=== PATIENT | male | born 1980 | race Caucasian/White ===

== ENCOUNTER 2020-06-05 06:27 | Emergency (ER) | payer MEDICAID, OTHER ==
[~2020-06-05] VITALS: Ht 185.4 cm; Wt 99.8 kg
[2020-06-05] MEDS ORDERED: KETOROLAC TROMETH 60MG/2ML VIAL IM ONE (09:15)
[2020-06-05] MEDS ORDERED: METHOCARBAMOL 500 MG TAB PO ONE (09:15)
[2020-06-05 10:59] VITALS: BP 121/76
== END 2020-06-05 11:20 | disposition home or self-care (01) ==
LOC: ER 06:27
DX: M54.16 Radiculopathy, lumbar region (principal)
CPT/HCPCS: 72100; 93971; 96372; 99284; J1885

== ENCOUNTER 2021-12-04 13:01 | Emergency (ER) | payer MEDICAID ==
[~2021-12-04] VITALS: Ht 185.4 cm; Wt 90.7 kg
[2021-12-04 13:49] VITALS: BP 114/75
== END 2021-12-04 17:30 | disposition home or self-care (01) ==
LOC: ER 13:01
DX: S02.2XXA Fracture of nasal bones, initial encounter for closed fracture (principal); S40.012A Contusion of left shoulder, initial encounter; Y04.2XXA Assault by strike against or bumped into by another person, initial encounter; Y93.89 Activity, other specified; Y92.89 Other specified places as the place of occurrence of the external cause; Y99.8 Other external cause status
CPT/HCPCS: 70450; 70486

== ENCOUNTER 2025-06-02 02:37 | Inpatient (IN) | payer MEDICAID, OTHER ==
[~2025-06-02] VITALS: Ht 182.9 cm; Wt 66.5 kg
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
[2025-06-02 04:02] LABS: Hemoglobin 9.7 g/dL (13.5-17.5); Nucleated Red Blood Cells % 0.0 %
[2025-06-02 04:05] LABS: Hematocrit 28.6 % (41.0-53.0); Mean Corpuscular Hemoglobin 28.3 pg (28.0-32.0); Mean Corpuscular Volume 83.2 fL (80.0-100.0)
[2025-06-02 04:06] LABS: Chloride 98 mmol/L (98-107); Potassium 4.1 mmol/L (3.5-5.1)
[2025-06-02 04:07] LABS: Anion Gap 7 (5-15); Carbon Dioxide 30 mmol/L (20-31)
[2025-06-02 04:12] LABS: BUN/Creatinine Ratio 16.7 (10.0-20.0); Blood Urea Nitrogen 9 mg/dL (9-23)
[2025-06-02] MEDS: HYDROcodone-ACET 7.5/325MG TAB PO ONE (04:13)
[2025-06-02] MEDS ORDERED: VANCOMYCIN 1GM/250ML KIT 250 ML IV ONE (04:30)
[2025-06-02 04:34] LABS: Calcium 8.6 mg/dL (8.7-10.4); Glucose 110 mg/dL (74-106); Sodium 135 mmol/L (136-145)
[2025-06-02] MEDS ORDERED: VANCOMYCIN PER PHARMACY 0 MG IV SCH (04:45)
--- NOTE | 2025-06-02 05:03 | DVH ---
Right lower extremity venous duplex Clinical History: RLE edema, pain Comparison: CV VENOUS DOPPLER EXTREM BILAT on DOS: 03/08/25. Findings: Duplex Doppler evaluation of the deep venous systems of right lower extremity from the common femoral veins to the popliteal veins including color Doppler and spectral/pulsed waveform analysis was performed. RIGHT SIDE: The common femoral vein demonstrates appropriate compressibility and waveform variability. There is compressibility/patency of the great saphenous vein at the proximal thigh. The femoral vein demonstrates appropriate compressibility and waveform variability. The deep femoral vein demonstrates appropriate compressibility and waveform variability. The popliteal vein demonstrates appropriate compressibility and waveform variability. Posterior tibial vein is patent on the color Doppler images. There are multiple lymph nodes in the right groin the largest measuring 1.2 x 0.4 x 1.0 cm. Impression: 1. No right femoropopliteal venous thrombosis.
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
[2025-06-02] MEDS: PANTOPRAZOLE 40 MG TAB PO SCH (05:48)
[2025-06-02] MEDS: SODIUM CHLORIDE 0.9% 1,000 ML IV SCH (05:49)
[2025-06-02] MEDS: VANCOMYCIN 1GM/250ML KIT 250 ML IV SCH (06:17)
[2025-06-02] MEDS: IOHEXOL 300 MG/ML 100ML BOTTLE IJ ONE (06:19)
--- NOTE | 2025-06-02 06:49 | DVH ---
CHEST RADIOGRAPH Indication: r/o dvt Technique: Single frontal view of the chest was obtained Comparison: XR CHEST 1 VIEW on DOS: 03/08/25. FINDINGS: Lines and Tubes: None Lungs: There is right lower lung zone consolidation. Pleura: No effusion. No pneumothorax. Cardiomediastinal contours: Unremarkable Bones: No acute osseous abnormality. Orthopedic hardware in the partially imaged left humerus. IMPRESSION: 1. Right lower lung zone consolidation which could represent pneumonia in the appropriate clinical setting. Follow-up to ensure complete resolution recommended.
[2025-06-02 07:05] LABS: Alanine Aminotransferase 31 U/L (7-40); Anion Gap 8 (5-15); BUN/Creatinine Ratio 17.0 (10.0-20.0); Carbon Dioxide 30 mmol/L (20-31); Chloride 99 mmol/L (98-107); Glucose 100 mg/dL (74-106); Potassium 4.2 mmol/L (3.5-5.1); Sodium 137 mmol/L (136-145); Total Protein 6.9 g/dL (5.7-8.2)
[2025-06-02 07:12] LABS: Albumin 3.0 g/dL (3.2-4.8); Alkaline Phosphatase 129 U/L (46-116); Bilirubin, Total < 0.2 mg/dL (0.2-1.0); Blood Urea Nitrogen 9 mg/dL (9-23); Calcium 8.2 mg/dL (8.7-10.4)
--- NOTE | 2025-06-02 07:35 | DVH ---
CLINICAL INFORMATION: 44 years old, Male; Rule out abscess, purulent discharge from stump suture line. TECHNIQUE: Axial CT images of the left lower extremity were obtained from the level of the left iliac crest through the left above knee amputation stump after the administration of 100 mL Omnipaque 300 IV contrast. Coronal and sagittal reformatted images were obtained, reviewed, and stored. All CT scans at this medical facility are performed using dose modulation techniques as appropriate to a performed exam including the following: Automated exposure control was utilized; adjustment of the MA and/or KV according to patient size; and use of iterative reconstruction technique. CTDIvol = 12.41 mGy DLP = 697.26 mGy-cm COMPARISON: CT ANGIOGRAM RUNOFF on DOS: 03/25/25, CT LOWER EXT BILAT W on DOS: 03/08/25 FINDINGS: There is diffuse subcutaneous edema throughout the left lower extremity with skin thickening and areas of subcutaneous enhancement, likely cellulitis in the appropriate clinical setting. There is ill-defined fluid and small locules of gas adjacent to the amputation stump, possible phlegmon. No definite peripherally enhancing abscess demonstrated, although prominent artifact from the intramedullary bonifacio obscures visualization at the level of the ill-defined fluid. There are areas of cortical deformity at the amputation stump of the distal femur. Possibly erosive changes. Osteomyelitis not excluded. Enlarged left inguinal lymph nodes and external iliac lymph nodes, with the largest measuring up to 2.7 x 1.4 cm, possibly reactive given the findings in the left lower extremity. Other etiologies, including malignancy can not be completely excluded. There are postsurgical changes from prior open reduction internal fixation of the left proximal femur with intramedullary bonifacio and [address] There is a locking screw at the proximal femoral diaphysis. There is a screw extending across the left acetabulum and into the left pubic bone. There is a screw extending across the left sacroiliac joint and visualized portions of the sacrum, incompletely included within the [id number] of the exam. Chronic ossicles along the anterior aspect of the left proximal femur near the level of the femoral neck, with the largest measuring up to 5 cm. Prominent exostosis at the mid femoral diaphysis and coursing slightly cephalad and medially. IMPRESSION: 1. Prominent subcutaneous edema, enhancement, and skin thickening in the left lower extremity, likely cellulitis in the appropriate clinical setting. 2. Ill-defined fluid collection near the left femoral amputation stump, possible phlegmon. No definite peripherally enhancing abscess demonstrated, although prominent beam hardening artifact from the intramedullary bonifacio obscures visualization. 3. Areas of cortical cortical deformity at the amputation stump of the distal femur, possible erosive changes. Osteomyelitis not excluded. 4. Enlarged left inguinal lymph nodes and left external iliac lymph nodes, most may be reactive to the process in the left lower extremity. Other etiologies, including malignancy can not be completely excluded in the appropriate clinical setting. Correlate with clinical findings. Similar findings are seen on prior CTA runoff exam. 5. Additional findings as described above.
[2025-06-02 08:30] LABS: Urine Protein, UAD TRACE (Negative)
[2025-06-02] MEDS: CEFEPIME 1GM/50ML 50 ML IV SCH (10:00)
[2025-06-02] MEDS: ZINC SULFATE 220mg CAP or TAB PO SCH (10:07)
[2025-06-02] MEDS: ENOXAPARIN SOD 40 MG/0.4 ML SYRINGE SC SCH (10:07)
[2025-06-02] MEDS: ASCORBIC ACID 500 MG TAB PO SCH (10:07)
[2025-06-02 12:37] LABS: Iron 16.0 ug/dL (65-175); Total Iron Binding Capacity 206.0 ug/dL (250-425)
[2025-06-02 14:10] LABS: COVID19 ANTIGEN SOFIA FIA NEGATIVE (NEGATIVE)
[2025-06-02 15:31] LABS: Opiate Scree,Urine Neg (NEGATIVE)
[2025-06-02 15:32] LABS: Amphetamine Screen, Urine Pos (NEGATIVE); Barbiturate Scree,Urine Neg (NEGATIVE); Benzodiazephine Screen, Urine Neg (NEGATIVE); Cannabinoid Screen, Urine Neg (NEGATIVE); Cocaine Screen, Urine Neg (NEGATIVE); Phencyclidine Screen, Urine Neg (NEGATIVE)
[2025-06-02 15:40] VITALS: O2SAT 98
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
--- NOTE | 2025-06-02 18:18 | DVH ---
Report Report Consult with Physician Open Discussion (F11) Query Retrieve Patient Info : Jazmin KRAMER/: 44YR (1980)Gender: MalePhone: [phone]: NA Order Info Location: [facility] Modality: CT Procedure Desc: CT LOWER EXTREMITY NON JOINT RIGH DOS: 06/02/2025 13:17 wRVU: NA Pending Since: NA Reason: WITHOUT CONTRAST, CT SCAN OF LOWER EXTREMITY, RIGHT, R/O ABC Status: Complete Tag: NA Type/Priority: Inpatient / ROUTINE STAT Stroke: NO Physician Info Ordering: DANIELLE SAHNIering: CHI IZQUIERDO Report Date: 06/02/2025Report Status: Final Search ANY 4M 1Y [address]Y [address] OTH US CR DX CT LOWER EXTREMITY NON JOINT RIGH DOS : 06/02/[address] LT LOWER EXTREMITY W CONTRAS DOS : 06/02/2025 COLT YA CHEST XRAY 1 VIEW DOS : 06/02/2025 CHULA ANDERSON US RT Lower DVT DOS : 06/02/[address] ANGIOGRAM RUNOFF DOS : 03/25/2025 CIH IZQUIERDO XR CHEST 1 VIEW DOS : 03/08/[address] LOWER EXT BILAT W DOS : 03/08/2025 CHULA ANDERSON CV VENOUS DOPPLER EXTREM BILAT DOS : 03/08/2025 ROHITH MORIN XR TIB FIB BILAT DOS : 03/08/2025 CHULA ANDERSON CV VENOUS DOPPLER LOW EXT LT DOS : 02/11/2025 CHULA ANDERSON FAC2C DOS : 12/04/2021 OLIVER LOYD HWOCT DOS : 12/04/2021 GISEL BEAUCHAMP EXAM: CT LOWER EXTREMITY NON JOINT RIGH INDICATION: without contrast, ct scan of lower extremity, right, r/o abc TECHNIQUE: Axial images of right lower extremity have been obtained along with coronal and sagittal reformatted images. All CT scans at this facility use dose modulation, iterative reconstruction, and/or weight based dosing when appropriate to reduce radiation dose to as low as reasonably achievable. COMPARISON: CT LT LOWER EXTREMITY W CONTRAS on DOS: 06/02/25 FINDINGS: BONES: No CT evidence of an acute fracture or aggressive osseous lesion. no abnormal osseous erosion, lucency, sclerosis to suggest osteomyelitis. Plate screw construct laterally applied of the proximal tibia prior healed malunited proximal fibular fracture with callus formation posterior calcaneal tuberosity spurring. MUSCLES: No abnormal attenuation. JOINT SPACES: No joint effusion. TENDONS/LIGAMENTS: Intact. OTHER: Significant surrounding skin thickening, subcutaneous adipose tissue edema. In regards to the clinical question, no CT evidence of drainable fluid collection/ abscess. Correlate for extensive cellulitis and/or bland edema. IMPRESSION: 1. No CT evidence of osteomyelitis. 2. No CT evidence of drainable fluid collection/abscess. 3. Correlate for extensive cellulitis and/or bland edema. IE SKELTON
[2025-06-02] MEDS ORDERED: VANCOMYCIN 1GM/250ML KIT 250 ML IV SCH (20:00)
[2025-06-02 21:17] VITALS: BP 107/63; PULSE 80; RESP 17; TEMP 97.7; O2SAT 100
[2025-06-02] MEDS: HYDROcodone-ACET 5/325MG TAB PO PRN (21:32)
[2025-06-02] MEDS: VANCOMYCIN 1.5GM/250ML 250 ML IV SCH (21:34)
[2025-06-03] VITALS (7 sets, daily range): BP systolic 94–106; BP diastolic 55–68; PULSE 75–94; RESP 16–18; TEMP 96.6–98; O2SAT 97–99
[2025-06-03 06:53] LABS: Hematocrit 29.0 % (41.0-53.0); Hemoglobin 10.1 g/dL (13.5-17.5); Mean Corpuscular Hemoglobin 29.3 pg (28.0-32.0); Mean Corpuscular Volume 83.8 fL (80.0-100.0); Nucleated Red Blood Cells % 0.1 %
[2025-06-03 07:57] LABS: Anion Gap 9 (5-15); Carbon Dioxide 28 mmol/L (20-31); Chloride 103 mmol/L (98-107); Potassium 4.6 mmol/L (3.5-5.1); Sodium 140 mmol/L (136-145)
[2025-06-03 08:02] LABS: Calcium 8.2 mg/dL (8.7-10.4)
[2025-06-03 08:03] LABS: BUN/Creatinine Ratio 12.3 (10.0-20.0); Glucose 97 mg/dL (74-106)
[2025-06-03 08:07] LABS: Blood Urea Nitrogen 7 mg/dL (9-23)
[2025-06-03] MEDS: FERROUS SULFATE 325mg EC TAB PO SCH (10:15)
--- NOTE | 2025-06-03 12:16 | DVHINCON2 ---
Date of service: Jun 03, 2025 Reason for Consultation Left stump cellulitis History of Present Illness Mr. Horan is a 44-year-old male who was brought to the hospital due to concerns of swelling and drainage from his left thigh that is S/P left AKA. Patient reports that he fell a couple of weeks ago and developed an abrasion that is slowly got worse and developed progressively worsening swelling as well as drainage to his left stump since. Patient reports that since being admitted to the hospital and being started on antibiotics the swelling and pain has signific antly improved and is only having some mild pain with movement. Patient was otherwise feeling well denying any other complaints or concerns during my evaluation. Past Medical History Denies Past Surgical History Denies Family History: Patient reports no known family medical history. Family History Noncontributory Social History Smokes cigarettes and occasionally use marijuana. Denies EtOH or illicit drug Allergies: Coded Allergies: NO KNOWN ALLERGIES (Unverified , 07/17/12) Current Medications Current Medications Medications (Trade) Dose Ordered Sig/Sidney Route PRN Reason Start Time Stop Time Status Last Admin Ceftriaxone Sodium 50 ml @ 100 mls/hr DAILY@09 IV 06/03/25 09:00 06/02/25 10:01 DC Vancomycin HCl 250 ml @ 250 mls/hr Q8H IV 06/02/25 20:00 06/02/25 18:33 DC Vancomycin HCl 250 ml @ 166.667 mls/hr Q12H IV 06/02/25 20:00 06/03/25 09:49 Ferrous Sulfate 325 mg DAILY PO 06/03/25 08:00 06/03/25 10:15 Review of Systems 10 point review of systems negative except as per HPI Vital Signs Vital Signs Date Time Temp Pulse Resp B/P (MAP) Pulse Ox O2 Delivery O2 Flow Rate FiO2 06/03/25 09:07 97.8 86 16 106/55 (72) 98 97.8 06/02/25 21:17 Room Air* 0 21 Physical Exam General appearance: A&O x4 in no acute distress HEENT: Normal ENT inspection, pharynx normal, TMs normal Neck: Full range of motion, nontender, normal inspection Respiratory: Chest nontender, without accessory muscle use, no respiratory distress Cardiovascular: No edema, no JVD, normal peripheral pulses Gastrointestinal: Soft, nontender, no organomegaly. Musculoskeletal: Left thigh mild pain with movement, mild swelling at the tip of the left. With light yellowish discharge at the tip. Skin: Dry, normal color, warm Lymphatic: No adenopathy Labs/Diagnostic Data Labs Test 06/03/25 10:45 06/03/25 05:31 06/02/25 08:00 06/02/25 07:48 Range/Units Vancomycin Level Trough 30.4 *H 5-10 ug/mL White Blood Count 4.4 # 4.4-10.8 10^3/uL Red Blood Count 3.46 L 4.5-5.90 10^6/uL Hemoglobin 10.1 L 13.5-17.5 g/dL Hematocrit 29.0 L 41.0-53.0 % Mean Corpuscular Volume 83.8 80.0-100.0 fL Mean Corpuscular Hemoglobin 29.3 28.0-32.0 pg Mean Corpuscular Hemoglobin Concent 35.0 32.0-36.0 g/dL Red Cell Distribution Width 14.2 11.8-14.3 % Platelet Count 595 H 140-450 10^3/uL Mean Platelet Volume 6.9 6.9-10.8 fL Neutrophils (%) (Auto) 70.2 37.0-80.0 % Lymphocytes (%) (Auto) 13.3 10.0-50.0 % Monocytes (%) (Auto) 8.6 0.0-12.0 % Eosinophils (%) (Auto) 6.7 0.0-7.0 % Basophils (%) (Auto) 1.2 0.0-2.0 % Neutrophils # (Auto) 3.1 1.6-8.6 10 ^3/uL Lymphocytes # (Auto) 0.6 0.4-5.4 10 ^3/uL Monocytes # (Auto) 0.4 0-1.3 10 ^3/uL Eosinophils # (Auto) 0.3 0-0.8 10 ^3/uL Basophils # (Auto) 0.1 0-0.2 10 ^3/uL Nucleated Red Blood Cells 0.1 % Sodium Level 140 136-145 mmol/L Potassium Level 4.6 3.5-5.1 mmol/L Chloride Level 103 98-107 mmol/L Carbon Dioxide Level 28 20-31 mmol/L Anion Gap 9 5-15 Blood Urea Nitrogen 7 L 9-23 mg/dL Creatinine 0.57 L 0.700-1.30 mg/dL Glomerular Filtration Rate Calc 122 >90 mL/min BUN/Creatinine Ratio 12.3 10.0-20.0 Serum Glucose 97 74-106 mg/dL Calcium Level 8.2 L 8.7-10.4 mg/dL Magnesium Level 2.0 1.6-2.6 mg/dL Vitamin D 25-Hydroxy 46.7 30.0-100 ng/mL SARS-CoV-2 Antigen (Rapid) Negative NEGATIVE Urine Color Light-yellow Yellow Urine Clarity Clear Clear Urine pH 6.5 5.0-9.0 Urine Specific [place] > 1.050 H 1.001-1.035 Urine Protein Trace H Negative Urine Ketones Negative Negative Urine Blood Negative Negative /uL Urine Nitrite Negative Negative Urine Bilirubin Negative Negative Urine Urobilinogen Normal Negative mg/dL Urine Leukocyte Esterase Negative Negative /uL Urine RBC <1 0 - 3 /hpf Urine Microscopic WBC < 1 0-3 /HPF Urine Squamous Epithelial Cells Few <5 /hpf Urine Bacteria None seen None Seen /hpf Urine Glucose Normal Normal mg/dL Urine Opiates Screen Neg NEGATIVE Urine Fentanyl Screen Pos NEGATIVE Urine Barbiturates Screen Neg NEGATIVE Urine Phencyclidine Screen Neg NEGATIVE Urine Amphetamines Screen Pos NEGATIVE Urine Benzodiazepines Screen Neg NEGATIVE Urine Cocaine Screen Neg NEGATIVE Urine Cannabinoids Screen Neg NEGATIVE Test 06/02/25 05:17 06/02/25 03:20 Range/Units Lactic Acid Level 1.5 0.4-2.0 mmol/L Total Bilirubin < 0.2 L 0.2-1.0 mg/dL Aspartate Amino Transferase (AST) 38 13-40 U/L Alanine Aminotransferase (ALT) 31 7-40 U/L Alkaline Phosphatase 129 H 46-116 U/L Total Protein 6.9 5.7-8.2 g/dL Albumin 3.0 L 3.2-4.8 g/dL Erythrocyte Sedimentation Rate 92 H 0-20 mm/hr Hemoglobin A1c 5.2 <5.7 % A1C Iron Level 16 L 65-175 ug/dL Total Iron Binding Capacity 206 L 250-425 ug/dL Percent Iron Saturation 7.8 L 20-55 % Ferritin 154.0 22-322 ng/mL Troponin I High Sensitivity < 3 L </=54 ng/L C-Reactive Protein High Sensitivity 10.79 H <1.0 mg/dL B-Type Natriuretic Peptide 8.92 0-100 pg/mL Vitamin B12 Level 421 211-911 pg/mL Folic Acid 5.56 >5.38 ng/mL Thyroid Stimulating Hormone (TSH) 1.08 0.55-4.78 uIU/mL Microbiology Date/Time Source Procedure Growth Status 06/02/25 10:00 Leg Left Gram Stain - Final Resulted 06/02/25 10:00 Leg Left Wound Culture - Preliminary Resulted 06/02/25 03:25 Blood Blood Culture - Preliminary NO GROWTH AFTER 24 HOURS OF INCUBATION. Resulted Left lower extremity CT scan reviewed and demonstrated: Prominent subcutaneous edema, enhancement, and skin thickening. Ill-defined fluid collection near the left femoral amputation stump, possible phlegmon. No definite peripherally enhancing abscess demonstrated, although prominent beam hardening artifact from the intramedullary bonifacio obscures visualization. Areas of cortical cortical deformity at the amputation stump of the distal femur, possible erosive changes. Enlarged left inguinal lymph nodes and left external iliac lymph nodes. Assessment Left AKA stump cellulitis Plan/Recommendation I had a very lengthy discussion with the patient and after discussing his case and reviewing his imaging studies with Dr. Allen we have recommended against any surgical intervention at this time and instead advised to continue with conservative treatment with antibiotics as well as wound care and advised to continue with daily wound dressing changes. I instructed the patient to follow up with our office on an outpatient basis for further evaluation and treatment options. Given that the patient continues to improve with the help of antibiotics patient understood and agreed. Thank you for allowing us to participate in the care of your patient. Plan discussed with: Patient THURSTONCHARLIE ISNCLAIR Pamela BASS Jun 03, 2025 12:16
--- NOTE | 2025-06-03 13:08 | DVH ---
CLINICAL INFORMATION: Rule out osteomyelitis in left above knee amputation stump. TECHNIQUE: Following the intravenous administration of 25.3 mCi technetium 99m- MDP, 3-phase bone scan was performed. Immediate flow images of the bilateral thighs were obtained in the anterior and posterior projections. Blood pool and delayed phase images were obtained in the anterior and posterior projections. COMPARISON: CT dated 06/02/2025. FINDINGS: On immediate flow images, there is asymmetric increased activity at the left above knee amputation stump. There is also increased activity in this location on blood pool images and delayed images, including involving the femoral amputation site. IMPRESSION: Increased uptake on all 3 phases involving the left femur amputation stump, suspected osteomyelitis in the appropriate clinical setting.
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
[2025-06-04] VITALS (7 sets, daily range): BP systolic 99–115; BP diastolic 59–75; PULSE 72–84; RESP 16–20; TEMP 97.2–98.3; O2SAT 97–100
[2025-06-04] MEDS: VANCOMYCIN 1.25GM/250ML 250 ML IV ONE (03:41)
[2025-06-04 07:44] LABS: Hematocrit 28.6 % (41.0-53.0); Hemoglobin 9.8 g/dL (13.5-17.5); Mean Corpuscular Hemoglobin 28.5 pg (28.0-32.0); Mean Corpuscular Volume 83.5 fL (80.0-100.0); Nucleated Red Blood Cells % 0.0 %
[2025-06-04 08:06] LABS: Alanine Aminotransferase 23 U/L (7-40); Alkaline Phosphatase 96 U/L (46-116); Anion Gap 8 (5-15); BUN/Creatinine Ratio 12.5 (10.0-20.0); Carbon Dioxide 30 mmol/L (20-31); Chloride 101 mmol/L (98-107); Glucose 92 mg/dL (74-106); Magnesium 2.1 mg/dL (1.6-2.6); Potassium 4.0 mmol/L (3.5-5.1); Sodium 139 mmol/L (136-145); Total Protein 6.6 g/dL (5.7-8.2)
[2025-06-04 08:07] LABS: Albumin 2.8 g/dL (3.2-4.8); Bilirubin, Total < 0.2 mg/dL (0.2-1.0); Blood Urea Nitrogen 7 mg/dL (9-23); Calcium 8.2 mg/dL (8.7-10.4)
--- NOTE | 2025-06-04 12:29 | DVHPN2 ---
Subjective Doing well No new complaints The wound is still draining of his left stump Right leg edema and erythema is improved Changes from previous H/P or p: Changes Eyes: No Pain, No Vision change, No Conjunctivae inflammation, No Eyelid inflammation, No Other, No Redness ENT: No Ear pain, No Ear discharge, No Nose pain, No Nose discharge, No Nose congestion, No Mouth pain, No Mouth swelling, No Throat pain, No Throat swelling, No Other Cardiovascular: No Chest Pain, No Palpitations, No Orthopnea, No Paroxysmal Noc. Dyspnea, No Edema, No Lt Headedness, No Other Respiratory: No Cough, No Dry, No Shortness of breath, No SOB with excertion, No Wheezing, No Hemoptysis, No Pleuritic Pain, No Sputum, No Other Gastrointestinal: No Nausea, No Vomiting, No Abdominal Pain, No Diarrhea, No Constipation, No Melena, No Hematochezia, No Other Musculoskeletal: No other, No neck pain; shoulder pain (Left); No arm pain; b ack pain; No hand pain; leg pain (Right), foot pain (Right) Skin: No Rash, No Lesions, No Jaundice, No Bruising; Other (Right leg swelling and pain) Objective Vitals Vital Signs Date Time Temp Pulse Resp B/P (MAP) Pulse Ox O2 Delivery O2 Flow Rate FiO2 06/04/25 09:00 98.0 72 20 107/62 (77) 100 98.0 06/03/25 20:00 Room Air* 0 21 Intake/Output Intake and Output 06/04/25 07:00 Intake Total 2524 ml Output Total 3250 ml Balance -726 ml Intake Oral 1924 ml IV Total 600 ml Output Urine Total 3250 ml General Appearance: Alert, Oriented X3, Cooperative, No acute distress Lungs: Clear to auscultation Cardiovascular: Regular rate, Normal S1, Normal S2 Abdomen: Normal bowel sounds, Soft, No tenderness Extremities: No edema Medications Current Medications Medications Dose Ordered Sig/Sidney Route Start Time Stop Time Status Last Admin Dose Admin Sodium Chloride 1,000 ml @ 120 mls/hr Q8H20M IV 06/02/25 04:45 06/02/25 21:34 120 MLS/HR Acetaminophen/ Hydrocodone Bitart 1 tab Q4HP PRN PO 06/02/25 04:45 06/03/25 20:06 1 TAB Enoxaparin Sodium 40 mg DAILY SC 06/02/25 10:00 06/04/25 11:17 40 MG Zinc Sulfate 220 mg DAILY PO 06/02/25 10:00 06/04/25 11:17 220 MG Ascorbic Acid 500 mg BID PO 06/02/25 10:00 06/04/25 11:17 500 MG Vancomycin HCl 0 ml @ 0 mls/hr PER PHARMACY IV 06/02/25 04:45 Pantoprazole Sodium 40 mg DAILY@0600 PO 06/02/25 06:00 06/04/25 05:33 40 MG Cefepime HCl 50 ml @ 12.5 mls/hr Q8HR IV 06/02/25 10:00 06/04/25 05:34 12.5 MLS/HR Ferrous Sulfate 325 mg DAILY PO 06/03/25 08:00 06/04/25 11:17 325 MG Vancomycin HCl 250 ml @ 200 mls/hr Q8HR@0400,1200,2000 IV 06/04/25 04:00 06/04/25 03:45 200 MLS/HR Laboratory Results Laboratory Tests 06/04/25 06:41 Chemistry Test 06/04/25 06:41 Albumin 2.8 g/dL (3.2-4.8) L Calcium Level 8.2 mg/dL (8.7-10.4) L Magnesium Level 2.1 mg/dL (1.6-2.6) Total Protein 6.6 g/dL (5.7-8.2) LFT Test 06/04/25 06:41 Alanine Aminotransferase (ALT) 23 U/L (7-40) Alkaline Phosphatase 96 U/L (46-116) Aspartate Amino Transferase (AST) 26 U/L (13-40) Total Bilirubin < 0.2 mg/dL (0.2-1.0) L Urinalysis Test 06/02/25 07:48 Urine Color Light-yellow (Yellow) Urine Clarity Clear (Clear) Urine pH 6.5 (5.0-9.0) Urine Specific [place] > 1.050 (1.001-1.035) Urine Protein Trace (Negative) H Urine Ketones Negative (Negative) Urine Blood Negative /uL (Negative) Urine Nitrite Negative (Negative) Urine Bilirubin Negative (Negative) Urine Urobilinogen Normal mg/dL (Negative) Urine Leukocyte Esterase Negative /uL (Negative) Urine RBC <1 /hpf (0 - 3) Urine Microscopic WBC < 1 /HPF (0-3) Urine Squamous Epithelial Cells Few /hpf (<5) Urine Bacteria None seen /hpf (None Seen) Urine Glucose Normal mg/dL (Normal) Microbiology Microbiology Date/Time Source Procedure Growth Status 06/02/25 15:00 Nose MRSA Screen - Final Methicillin Resistant S.aureus Complete 06/02/25 03:25 Blood Blood Culture - Preliminary NO GROWTH AFTER 48 HOURS OF INCUBATION. Resulted Assessment/Plan Assessment/Plan #Right foot and left AKA stump cellulitis #Anemia likely anemia of chronic disease/iron-deficiency anemia #Thrombocytosis likely reactive # substance abuse Hyponatremia MRSA of the nares Wound infection of the left JOHN a amputation stump with Staph aureus Plan Continue cefepime and vancomycin Add Bactroban ointment to the nares Daily wound dressing changes Stopped the IV fluids Plan discussed with: Patient Date of Service: Jun 04, 2025 Billing Provider: LION HESS MD Common Visit Codes: [id number] INP/OBS CARE(HIGH) LION HESS MD Jun 04, 2025 12:29
--- NOTE | 2025-06-04 14:14 | MEDREC ---
[facility] ASP Intervention Section I [facility] Intervention: Review courses of therapy (CONSIDER ADDING MUPIROCIN FOR POSITIVE MRSA NARES) DONTRELL KIRBY [facility] RESIDENT Jun 04, 2025 14:14
[2025-06-04] MEDS: MUPIROCIN 2% OINT 15gm or 22gm FOR MRSA NARES EACHNOSTRI SCH (21:34)
[2025-06-04 23:15] LABS: Hematocrit 30.9 % (41.0-53.0); Hemoglobin 10.3 g/dL (13.5-17.5); Mean Corpuscular Hemoglobin 28.1 pg (28.0-32.0); Mean Corpuscular Volume 84.4 fL (80.0-100.0); Nucleated Red Blood Cells % 0.1 %
[2025-06-05] VITALS (7 sets, daily range): BP systolic 112–124; BP diastolic 71–84; PULSE 62–94; RESP 16–20; TEMP 97.8–99.5; O2SAT 95–99
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
--- NOTE | 2025-06-05 15:55 | MEDREC ---
[facility] ASP Intervention Section I [facility] ASP Intervention: Deescalate AB based on CS (LEG WOUND CULTURE GROWING MSSA - PLEASE CONSIDER DE-ESCALATION BASED ON CULTURE RESULTS) RAJ JUAREZ PHARMACIST Jun 05, 2025 15:55
[2025-06-05] MEDS: VANCOMYCIN 1.5GM/250ML 250 ML IV SCH (16:46)
[2025-06-06] VITALS (8 sets, daily range): BP systolic 103–132; BP diastolic 65–83; PULSE 69–103; RESP 16–19; TEMP 97.3–99.3; O2SAT 94–100
[2025-06-06 06:24] LABS: Hematocrit 32.6 % (41.0-53.0); Hemoglobin 11.0 g/dL (13.5-17.5); Mean Corpuscular Hemoglobin 27.8 pg (28.0-32.0); Mean Corpuscular Volume 82.4 fL (80.0-100.0); Nucleated Red Blood Cells % 0.1 %
[2025-06-06 06:31] LABS: Chloride 102 mmol/L (98-107); Potassium 3.9 mmol/L (3.5-5.1); Sodium 140 mmol/L (136-145)
[2025-06-06 06:32] LABS: Anion Gap 9 (5-15); Calcium 8.9 mg/dL (8.7-10.4); Carbon Dioxide 29 mmol/L (20-31)
[2025-06-06 06:37] LABS: BUN/Creatinine Ratio 19.0 (10.0-20.0); Blood Urea Nitrogen 12 mg/dL (9-23)
[2025-06-06 06:38] LABS: Magnesium 2.2 mg/dL (1.6-2.6)
[2025-06-06 06:40] LABS: Glucose 108 mg/dL (74-106)
[2025-06-06 14:31] LABS: INR 1.11 (0.9-1.15); Partial Thromboplastin Time 29.5 SEC (24.5-34.5); Prothrombin Time 11.6 sec (9.3-11.8)
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
[2025-06-06] MEDS: ceFAZolin 2 GM/D5W50ml 50 ML IV SCH (16:10)
[2025-06-07 05:00] VITALS: BP 133/78; PULSE 77; RESP 18; TEMP 97.6; O2SAT 99
[2025-06-07 07:48] LABS: Hemoglobin 10.5 g/dL (13.5-17.5)
[2025-06-07 07:51] LABS: Hematocrit 31.6 % (41.0-53.0); Mean Corpuscular Hemoglobin 28.5 pg (28.0-32.0); Mean Corpuscular Volume 85.5 fL (80.0-100.0); Nucleated Red Blood Cells % 0.0 %
[2025-06-07 08:00] VITALS: PULSE 77; RESP 16; O2SAT 98
[2025-06-07 08:41] LABS: Alanine Aminotransferase 36 U/L (7-40); Albumin 3.4 g/dL (3.2-4.8); Alkaline Phosphatase 98 U/L (46-116); Anion Gap 14 (5-15); BUN/Creatinine Ratio 24.6 (10.0-20.0); Blood Urea Nitrogen 17 mg/dL (9-23); Calcium 8.9 mg/dL (8.7-10.4); Carbon Dioxide 22 mmol/L (20-31); Chloride 102 mmol/L (98-107); Glucose 76 mg/dL (74-106); Magnesium 2.4 mg/dL (1.6-2.6); Potassium 5.0 mmol/L (3.5-5.1); Sodium 138 mmol/L (136-145); Total Protein 7.6 g/dL (5.7-8.2)
[2025-06-07 08:44] LABS: Bilirubin, Total < 0.2 mg/dL (0.2-1.0)
[2025-06-07 08:58] VITALS: BP 96/63; PULSE 77; RESP 16; TEMP 97.9; O2SAT 98
[2025-06-07 13:00] VITALS: BP 91/59; PULSE 80; RESP 16; TEMP 98; O2SAT 98
--- NOTE | 2025-06-07 13:38 | DVHDSRES ---
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 bilateral thighs were obtained in the anterior and posterior projections. Blood pool and delayed phase images were obtained in the anterior and posterior projections. COMPARISON: CT dated 06/02/2025. FINDINGS: On immediate flow images, there is asymmetric increased activity at the left above knee amputation stump. There is also increased activity in this location on blood pool images and delayed images, including involving the femoral amputation site. IMPRESSION: Increased uptake on all 3 phases involving the left femur amputation stump, suspected osteomyelitis in the appropriate clinical setting. ATED BY: ARI YA DO DICTATED DATE/TIME: 06/03/251305 SIGNED BY: ARI YA DO SIGNED DATE/TIME: 06/03/25 130 CC: [place] [id number] Ph: [phone] DIAGNOSTIC IMAGING Diagnostic Imaging Report : [id number] Signed PATIENT: FRANCY KRAMER ACCT: [id number] UNIT: [id number] : 1980 [facility]GE / SEX: 44 / M ADM STATUS: ADM IN SERVICE 4 ORDERING PHYSICIAN: REAL CHIRINOS MD PROCEDURE(s): CXR1 - CHEST XRAY 1 VIEW REASON: r/o dvt ORDER NUMBER(s): [id number], ACCESSION NUMBER(s): [id number] CHEST RADIOGRAPH Indication: r/o dvt Technique: Single frontal view of the chest was obtained Comparison: XR CHEST 1 VIEW on DOS: 03/08/25. FINDINGS: Lines and Tubes: None Lungs: There is right lower lung zone consolidation. Pleura: No effusion. No pneumothorax. Cardiomediastinal contours: Unremarkable Bones: No acute osseous abnormality. Orthopedic hardware in the partially imaged left humerus. IMPRESSION: 1. Right lower lung zone consolidation which could represent pneumonia in the appropriate clinical setting. Follow-up to ensure complete resolution recommended. ATED BY: NATALIE ANDERSON MD DICTATED DATE/TIME: 06/02/25646 SIGNED BY: NATALIE ANDERSON MD SIGNED DATE/TIME: 06/02/25646 CC: Condition at Discharge: Stable Final Diagnosis/Problems List #Right foot and left AKA stump cellulitis # left leg AKA stump osteomyelitis #Right leg swelling likely to cellulitis, ruled out DVT/abscess # left inguinal lymphadenopathy likely reactive #Anemia likely anemia of chronic disease/iron-deficiency anemia #Thrombocytosis likely reactive # substance abuse-methamphetamine Discharge [facility]position[facility] Discharge Instruct/Medications Diet: Regular Activity: See Comment Activity comment: Patient at fall risk Follow Up/Referral: MD at SNF Medications: Please see prescription No Active Prescriptions or Reported Meds Discharge Statement: "Patient was advised to return to the ER or call 911 if any headaches, dizziness, shortness of breath, chest pain, abdominal pain, bleeding, fevers, or worsening of medical condition. Patient was counseled about treatment plan, medications, possible side effects, patientverbalized understanding. All questions were answered to the best of my ability. This discharge took greater then 30 minutes in planning, reviewing documentation, counseling the patient, and discussing with other team members." ASSESSMENT ASSESSMENT Assessment Date of Service: May 07, 2025 Billing Provider: LION HESS MD Common Visit Codes: 76616-TSR/OBS DISCH DAY >30min DANIELLE SAHNI RESIDENT Jun 07, 2025 13:38 LION HESS MD Jun 14, 2025 21:42
[2025-06-07 17:14] VITALS: BP 109/77; PULSE 85; RESP 17; TEMP 97.4; O2SAT 98
[2025-06-07 21:00] VITALS: BP 97/63; PULSE 78; RESP 18; TEMP 97.9; O2SAT 96
[2025-06-08 01:00] VITALS: BP 95/63; PULSE 77; RESP 17; TEMP 98.1; O2SAT 94
[2025-06-08 05:00] VITALS: BP 100/60; PULSE 72; RESP 18; TEMP 97.6; O2SAT 99
[2025-06-08] MEDS: LIDOCAINE 1% (LOCAL ANESTH.) PF 5ml SDV ID ONE (08:45)
[2025-06-08 08:53] VITALS: BP 103/70; PULSE 63; RESP 16; TEMP 97.4; O2SAT 98
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
[2025-06-08] MEDS: SODIUM CHLOR 0.9% PF (SALINE LOCK) 10ML VIAL/SYR IV SCH (12:02)
[2025-06-08 12:40] VITALS: BP 104/67; PULSE 71; RESP 16; TEMP 98.5; O2SAT 99
[2025-06-08 13:07] VITALS: BP 104/67; PULSE 71; RESP 16; TEMP 98.5; O2SAT 99
== END 2025-06-08 14:50 | DRG 349 ==
LOC: EDSEX 02:37 → ER 02:37 → OVERFLOW 05:25 → EDUNIT# 05:25 → WEST WING 21:18 → EAST 06-08 01:27
PROVIDERS: ADMIT Internal Medicine Geriatric Medicine; ATTEND Internal Medicine Geriatric Medicine
PROC: 02HV33Z Insertion of Infusion Device into Superior Vena Cava, Percutaneous Approach (ICD-10-PCS; principal; 2025-06-08)
PROC: B548ZZA Ultrasonography of Superior Vena Cava, Guidance (ICD-10-PCS; 2025-06-08)
DX: T87.44 Infection of amputation stump, left lower extremity (principal); J15.69 Pneumonia due to other Gram-negative bacteria; J15.9 Unspecified bacterial pneumonia; D63.8 Anemia in other chronic diseases classified elsewhere; F15.10 Other stimulant abuse, uncomplicated; D50.9 Iron deficiency anemia, unspecified; L03.115 Cellulitis of right lower limb; D75.839 Thrombocytosis, unspecified; L03.116 Cellulitis of left lower limb; Z89.612 Acquired absence of left leg above knee; F17.210 Nicotine dependence, cigarettes, uncomplicated; R59.0 Localized enlarged lymph nodes; Z91.81 History of falling; Z79.899 Other long term (current) drug therapy; Y84.8 Other medical procedures as the cause of abnormal reaction of the patient, or of later complication, without mention of misadventure at the time of the procedure; Y92.89 Other specified places as the place of occurrence of the external cause
CPT/HCPCS: 36415; 36569; 71045; 73700; 73701; 76937; 78315; 80048; 80053; 80202; 80307; 81001; 82306; 82565; 82607; 82728; 82746; 83036; 83540; 83550; 83605; 83735; 83880; 84443; 84484; 85025; 85610; 85652; 85730; 86141; 87040; 87077; 87081; 87186; 87205; 87426; 93971; 96365; 96372; G0378